=== PATIENT | male | born 1965 | race Two or more races ===

== ENCOUNTER → 2020-06-28 | Emergency (ER) | payer SELFPAY ==
[~2020-06-28] VITALS: Ht 167.6 cm; Wt 85.3 kg
[~2020-06-28] MED LIST: levoFLOXacin 250 MG TAB PO ONE
[2020-06-28 23:00] VITALS: BP 106/72
== END | disposition home or self-care (01) ==
LOC: ER 22:50
DX: U07.1 COVID-19 (principal); R06.02 Shortness of breath; J18.9 Pneumonia, unspecified organism; R50.81 Fever presenting with conditions classified elsewhere; R53.1 Weakness
CPT/HCPCS: 71045